=== PATIENT | male | born 1955 | race Caucasian/White ===

== ENCOUNTER 2020-05-26 05:55 | Outpatient (CLI) | payer MEDICARE, OTHER ==
[2020-05-26 14:51] LABS: Hemoglobin 15.3 g/dL (14.0-18.0); Mean Corpuscular Hemoglobin 33.3 pg (27.0-31.0); Mean Platelet Volume 7.2 fL (7.4-10.4); Platelet Count 208 thou/uL (130-400); RBC Distribution Width 11.3 % (11.5-14.5); Red Blood Cell (RBC) Count 4.59 mill/uL (4.70-6.10); White Blood Cell (WBC) Count 9.3 thou/uL (4.8-10.8)
[2020-05-26 14:56] LABS: INR-International Normal Ratio 0.9; PTT 27.7 sec (22.9-36.1); Prothrombin Time 11.9 sec (12.0-14.7)
[2020-05-26 15:03] LABS: Anion Gap 13 mmol/L (10-20); BUN (Urea Nitrogen) 27 mg/dL (8.4-25.7); Calc. Creatinine Clearance 0 mL/min (70-130); Carbon Dioxide 26 mmol/L (23-31); Chloride 100 mmol/L (98-107); Estimated GFR-MDRD 34; Potassium 5.8 mmol/L (3.5-5.1); Sodium 133 mmol/L (136-145)
[2020-05-26 15:04] LABS: Calcium 9.6 mg/dL (7.8-10.44); Glucose 175 mg/dL (80-115)
[2020-05-27 12:16] LABS: SARS-CoV-2 MS2 Positive; SARS-CoV-2 N Gene Negative; SARS-CoV-2 S Gene Negative; SARS-CoV-2 orf1ab Negative
--- NOTE | 2020-05-29 14:26 | EKG ---
Test Reason : Blood Pressure : / mmHG Vent. Rate : 075 BPM Atrial Rate : 075 BPM P-R Int : 206 ms QRS Dur : 104 ms QT Int : 400 ms P-R-T Axes : 064 122 021 degrees QTc Int : 446 ms Normal sinus rhythm Right axis deviation Pulmonary disease pattern Abnormal ECG No previous ECGs available Confirmed by MARY ANNE FALCON (2) on 05/29/2020 2:26:03 PM Referred By: DENA Confirmed By:MARY ANNE FALCON
== END 2020-05-26 05:56 | disposition home or self-care (01) ==
LOC: LABBT 05:55
PROVIDERS: ATTEND Neurological Surgery
DX: Z01.818 Encounter for other preprocedural examination (principal); Z11.59 Encounter for screening for other viral diseases; M48.07 Spinal stenosis, lumbosacral region
CPT/HCPCS: 80048; 85027; 85610; 85730; 93005; U0003; 87635; 93010

== ENCOUNTER 2020-05-26 11:45 | Inpatient (IN) | payer MEDICARE ==
[2020-05-25 14:41] VITALS: BMI 32.3
--- NOTE | 2020-05-30 06:09 | HP ---
PROCEDURE TO BE PERFORMED: Redo L2-S1 laminectomy. HISTORY OF PRESENT ILLNESS: Mr. Orr is a 65-year-old gentleman with lower back and leg pain. His pain is greater on the left than on the right. He continues to have no improvements with lumbar spinal injections and physical therapy. He has a past history of a TLIF [place] [address] Rosas in [place]. States his pain radiates down both legs into his gluteal muscles, groin and the hamstrings. When he walks, his pain becomes worse. He can only walk about 5 feet due to the pain and he must stop immediately and offload. This prevents him from standing long periods of time as well. He gets some relief by bending forward and supporting his weight using a walker or shopping cart. The farther he walks the weaker his legs get, makes him very unstable. Mr. Orr received plans from his nephrologists to get a myelogram due to having a pacemaker. The myelogram noted severe stenosis at L2-L3, L3-L4 and moderate stenosis at L5-S1. He denies any bladder or bowel dysfunction. MEDICAL HISTORY: Heart trouble, chest pain, OH, heart failure, hypertension, diabetes mellitus, kidney disease/failure, CVA. PAST SURGICAL HISTORY: Heart catheterization, back, cardiac bypass, pacemaker defibrillator. HOSPITALIZATION: As above surgeries. FAMILY HISTORY: Father alive, 76 years old. Mother 64. One brother, two sisters, Alzheimer's and OH. SOCIAL HISTORY: with three children. No alcohol use. Smokes six cigarettes a day for the past 41 years. MEDICATIONS: 1. Dronedarone. 2. Ezetimibe. 3. Ventolin. 4. Tylenol #4. 5. Benzonatate. 6. Diazepam. 7. Glipizide. 8. Dexamethasone. REVIEW OF SYSTEMS: CONSTITUTIONAL: Denies fever or chills. EYES, EAR, NOSE, AND THROAT: Denies change of vision or hearing. CARDIAC: Denies chest pain, shortness of breath, or diaphoresis. PULMONARY: Denies shortness of breath, cough, or hemoptysis. : Denies urinary incontinence, trouble with urination, frequency of urination , or bloody urine. SKIN: Denies skin rash, bruising, bleeding, or skin masses. MUSCULOSKELETAL: As per history of present illness. NEUROLOGICAL: As per history of present illness. PSYCHOLOGICAL: Denies anxiety, depression, or behavioral changes. PHYSICAL EXAMINATION: VITAL SIGNS: Weight 220, height 5 feet 9 inches. HEENT: Pupils are equal. Extraocular movements are intact. NECK: Normal, soft and supple. No masses are noted. Range of motion intact and nonpainful. NEUROLOGIC: Awake, alert, and oriented x3. Memory, attention, fund of knowledge are normal. Cranial nerves 2 through 12 are grossly intact. Gait and station: Normal. Has to lean forward. Motor exam: Normal strength in the iliopsoas, quadriceps, hamstrings, anterior tib, EHL, gastrocs and toe flexors. Sensory exam, stocking distribution, sensory loss. IMAGING: Myelogram at L4-L5 instruments in place, still residual stenosis there. Severe stenosis at L2-L3, L3-L4, moderate at L5-S1. PLAN: 1. Laminectomy at L2-S1 with removal of the posterior crossbar instrument. 2. Preop labs, CBC, PT, PTT and COVID-19. 3. Anesthesia clearance. 4. Dr. Merino clearance for May 30 surgery. INFORMED CONSENT: We discussed the indications, risks, benefits, alternatives, and expected results from surgery. The risks discussed included, but were not limited to, bleeding, infection, CSF leak, nerve damage, weakness, incontinence, cauda equina injury, arachnoiditis, paralysis, ventilator dependency, wheelchair dependency, loss of vision, cardiopulmonary complications of anesthesia or . Long-term complications discussed included, but were not limited to spinal instability and future surgery. He understands the risks and is willing to proceed. Job ID: [id number] [facility]
[2020-05-30] MEDS ORDERED: EPINEPHrine 1 MG/ML AMP ONE (06:21)
[2020-05-30] MEDS ORDERED: Thrombin 5000 UNITS/5 ML VIAL ONE (06:21)
[2020-05-30] MEDS ORDERED: Bupivacaine PF 0.5% 30 ML VIAL ONE (06:21)
[2020-05-30] MEDS ORDERED: Fentanyl 250 MCG/5 ML VIAL ONE (06:24)
[2020-05-30] MEDS ORDERED: Midazolam HCl 2 mg/2 ml Vial ONE (06:24)
[2020-05-30] MEDS ORDERED: Phenylephrine 10 MG/ML VIAL ONE ×2 (08:05→08:52)
[2020-05-30] MEDS ORDERED: Milk Of Magnesia 30 ML UDCUP PO PRN (11:39)
[2020-05-30] MEDS ORDERED: traMADol HCl 50 MG TAB PO PRN (11:39)
[2020-05-30] MEDS ORDERED: Scopolamine 1.5 mg/72 hour Patch TD PRN (11:39)
[2020-05-30] MEDS ORDERED: Promethazine 25 MG TAB PO PRN (11:39)
[2020-05-30] MEDS ORDERED: diphenhydrAMINE 25 MG CAP PO PRN (11:39)
[2020-05-30] MEDS ORDERED: Tamsulosin HCl 0.4 MG CAP PO PRN (11:39)
[2020-05-30] MEDS ORDERED: Acetaminophen 325 MG TAB PO PRN (11:39)
[2020-05-30] MEDS ORDERED: Fentanyl 100 MCG/2 ML VIAL ONE ×3 (11:58→12:30)
[2020-05-30] MEDS ORDERED: Morphine 4 MG/ML VIAL ONE (12:30)
--- NOTE | 2020-05-30 12:43 | OP ---
DATE OF PROCEDURE: 05/30/2020 MAINTENANCE PLANNER: Reji Hobbs PA-C PREOPERATIVE INDICATION: Prevent neurological deterioration. PREOPERATIVE DIAGNOSES: Multiple previous lumbar surgeries, repeat lumbar stenosis with severe neurogenic claudication at L2-L3, L3-L4, L5-S1 and foraminal stenosis at L4-L5 (previously fused segment). POSTOPERATIVE DIAGNOSES: Multiple previous lumbar surgeries, repeat lumbar stenosis with severe neurogenic claudication at L2-L3, L3-L4, L5-S1 and foraminal stenosis at L4-L5 (previously fused segment). PROCEDURES PERFORMED: Reopening of lumbar incision, decompressive laminectomy, medial facetectomy, foraminotomy at L2-L3, L3-L4, L4-L5, L5-S1, dissection of scar tissue, removal of L4-L5 crossbar posterior instrumentation. PREOPERATIVE MEDICATION: Ancef 2 g IV. DRAIN NUMBER: Zero. DRAIN TYPE: None. DESCRIPTION OF PROCEDURE: The patient was brought to the operating room. General endotracheal anesthesia was induced. The patient was positioned prone on the operating table with his chest and hips supported by the appropriate attachments of the Arvin frame. A lateral fluoro radiograph confirmed the previous incision would give us the lumbar access we needed with minimal extension superiorly. The lumbar skin was sterilely prepped and draped. We opened with a 10 blade knife and we controlled bleeding with bipolar and monopolar cautery. We used monopolar cautery to dissect through subcutaneous tissues to the thoracodorsal fascia. We incised the fascia in midline and reflected the paraspinal muscles and scar tissue off the spinous process and lamina of L2, L3, L4 (crossbar instrumentation), L5 and the top of S1. A self-retaining retractor was placed and a lateral fluoro radiograph confirmed the levels upon which we were operating. We then removed the spinous process of L2 and L3 and L5 and S1 with Adson rongeur. We brought a hex screw head in the field and removed the titanium crossbar instrumentation at L4-L5. This was taken out in multiple pieces that had been previously assembled by his prior spine surgeons. With this out of the way, we could access the spinal canal at that level as well. We brought a high-speed drill into the field. We thinned the lamina of L2, L3, L5, and S1 and with Kerrison rongeurs, we fashioned a laminectomy down the midline. We widened our laminectomy defect carefully by teasing scar tissue off the undersurface of the lamina and using Kerrison rongeurs, performed medial facetectomies. We performed foraminotomies over the exit points of the nerve roots as well. Most of the scar tissue built up at L4-L5 and here performing medial facetectomies was our method of loosening the scar tissue attachments to the lateral confines of the spinal canal. We performed foraminotomy over the L4 nerve roots there. We freed up the L5 nerve roots as well. This medial facetectomy and foraminotomy procedure was used throughout until we had decompressed the common thecal sac, the lateral recesses in the foramen. We irrigated with bacitracin irrigation. We waxed the bone edges. We passed a Alex ball probe out the foramen with the L2, L3, L4, L5, and S1 nerve roots and there was no compression. We treated the wound with vancomycin powder after copious irrigation. We closed the wound in anatomical layers and we applied a sterile dressing. This was a clean case, no contamination. Job ID: [id number]
[2020-05-30] MEDS ORDERED: PROPOFOL 200 MG/20 ML VIAL ONE (13:02)
[2020-05-30] MEDS ORDERED: PHENYLEPHRINE-NS 100 MCG/ML 10 ML SYRINGE ONE (13:02)
[2020-05-30] MEDS ORDERED: EPHEDRINE 25 MG/5 ML SYRINGE ONE (13:02)
[2020-05-30] MEDS ORDERED: Glycopyrrolate 0.2 MG/ML 5 ML SYRINGE ONE (13:02)
[2020-05-30] MEDS ORDERED: Lidocaine 1% PF 5 ML VIAL ONE (13:02)
[2020-05-30] MEDS ORDERED: Ondansetron PF 4 MG/2 ML Vial ONE (13:02)
[2020-05-30] MEDS ORDERED: Rocuronium Bromide 10 MG/ML (10ML VIAL) ONE (13:02)
[2020-05-30] MEDS ORDERED: CEFAZOLIN 2 GM in Premix Bag 1 BAG IVPB SCH (14:00)
[2020-05-30] MEDS: CEFAZOLIN 2 GM in Premix Bag 1 BAG IVPB SCH ×2 (15:38→23:19)
[2020-05-30] MEDS: Sodium Chloride 0.9% 1,000 ML IV SCH ×3 (15:39→23:29)
[2020-05-30] MEDS ORDERED: Dronedarone HCl 400 MG TAB PO SCH ×2 (17:00→17:15)
[2020-05-30] MEDS: HYDROcodone/Acetaminophen 7.5/325 mg Tablet PO PRN (18:06)
[2020-05-30] MEDS ORDERED: cloNIDine 0.1 MG TAB PO SCH (21:00)
[2020-05-30] MEDS ORDERED: Spironolactone 25 MG TAB PO SCH (21:00)
[2020-05-30] MEDS: Aspirin 81 mg Enteric Coated Tablet PO SCH (21:02)
[2020-05-30] MEDS: Spironolactone 25 MG TAB PO SCH (21:02)
[2020-05-30] MEDS: Morphine 2 MG/ML VIAL SLOW IVP PRN (23:18)
[2020-05-31] MEDS: Cyclobenzaprine 10 MG TAB PO PRN ×2 (02:20→12:11)
[2020-05-31] MEDS: HYDROcodone/Acetaminophen 7.5/325 mg Tablet PO PRN ×3 (02:23→12:11)
[2020-05-31] MEDS: Morphine 2 MG/ML VIAL SLOW IVP PRN (05:55)
[2020-05-31] MEDS ORDERED: glipiZIDE 10 MG TAB PO SCH ×2 (07:30)
--- NOTE | 2020-05-31 08:20 | PRG ---
DATE OF SERVICE: 05/31/2020 I saw Mr. Orr on rounds this morning. His hearing loss makes it difficult for him to communicate. He complains of some significant back pain. He notices improvement in the sensation of his legs and feet. He can move his legs , but if he moves his large muscles around the hip, his back hurts significantly. He is hesitant to do so therefore. I am going to have the acute Pain Management team visit with Mr. Orr to get his pain under control so that he can get the physical therapy he needs. We may try a brace to alleviate some of the discomfort. That might be beneficial for him. Eventually, inpatient rehabilitation is likely. Job ID: [id number] [facility]TD[facility]
[2020-05-31] MEDS ORDERED: Docusate 100 MG CAP PO PRN (08:29)
[2020-05-31] MEDS ORDERED: Fentanyl 100 MCG/2 ML VIAL SLOW IVP PRN (08:30)
[2020-05-31] MEDS ORDERED: Carvedilol 6.25 MG TAB PO SCH (09:00)
[2020-05-31] MEDS: glipiZIDE 5 MG TAB PO SCH ×2 (09:13→15:38)
[2020-05-31] MEDS: Dronedarone HCl 400 MG TAB PO SCH ×2 (09:15→15:37)
[2020-05-31] MEDS: Furosemide 40 MG TAB PO SCH (09:15)
[2020-05-31] MEDS: cloNIDine 0.1 MG TAB PO SCH ×2 (09:15→22:00)
[2020-05-31] MEDS: Potassium Chloride 20 MEQ TAB PO SCH (09:16)
[2020-05-31] MEDS: Amiodarone 200 MG TAB PO SCH (09:16)
[2020-05-31] MEDS: Carvedilol 6.25 MG TAB PO SCH ×2 (09:17→21:59)
[2020-05-31] MEDS: Spironolactone 25 MG TAB PO SCH ×2 (09:17→22:03)
[2020-05-31] MEDS: Sodium Chloride 0.9% 1,000 ML IV SCH ×2 (10:41→19:20)
[2020-05-31] MEDS ORDERED: HumaLOG 300 UNITS/3 ML VIAL SC PRN ×2 (11:15)
[2020-05-31] MEDS ORDERED: Dextrose 50% Abboject 50 ML SYRINGE SLOW IVP PRN (11:15)
[2020-05-31] MEDS ORDERED: Dextrose 5% in Water 1,000 ML IV PRN (11:15)
--- NOTE | 2020-05-31 14:08 | PDOC.HOSPP ---
- Subjective Encounter Date: 05/31/20 Encounter Time: 10:30 Subjective: pt seen and examined for medical management, has some complaints of pain but no others - Objective Vital Signs & Weight: Vital Signs (12 hours) Temp Pulse Resp BP BP Pulse Ox 05/31/20 11:13 99 F 99 16 106/72 96 05/31/20 09:17 130/82 05/31/20 09:15 130/82 05/31/20 07:34 99.5 F 112 H 18 130/82 95 05/31/20 04:15 98.9 F 102 H 16 136/77 92 L Weight Weight 219 lb I&O: 05/30/20 05/31/20 06/01/20 06:59 06:59 06:59 Intake Total 3660 Output Total 4200 Balance -540 EKG Reviewed by me: Yes (SR 75) Hospitalist ROS - Review of Systems Constitutional: reports: other (pain in back) Eyes: denies: pain, vision change, conjunctivae inflammation, eyelid inflammation, redness, other ENT: denies: ear pain, ear discharge, nose pain, nose discharge, nose congestion , mouth pain, mouth swelling, throat pain, throat swelling, other Respiratory: denies: cough, dry, shortness of breath, hemoptysis, SOB with excertion, pleuritic pain, sputum, wheezing, other Cardiovascular: denies: chest pain, palpitations, orthopnea, paroxysmal noc. dyspnea, edema, light headedness, other Gastrointestinal: denies: nausea, vomiting, abdominal pain, diarrhea, constipation, melena, hematochezia, other Genitourinary: denies: dysuria, frequency, incontinence, hematuria, retention, other Musculoskeletal: denies: neck pain, shoulder pain, arm pain, back pain, hand pain, leg pain, foot pain, other Skin: denies: rash, lesions, piper, bruising, other Neurological: denies: weakness, numbness, incoordination, change in speech, confusion, seizures, other All other systems reviewed; all pertinent +/- noted in HPI/Subj - Medication Medications: Active Medications Generic Name Dose Route Start Last Admin Trade Name Freq PRN Reason Stop Dose Admin Hydrocodone Bitart/Acetaminophen 1 tab 05/30/20 11:39 05/31/20 12:11 [place] 7.5/325 PO 1 tab Q4H PRN Administration Mild Pain (1-3) Amiodarone HCl 200 mg 05/31/20 09:00 05/31/20 09:16 Cordarone PO Not Given DAILY [facility] Aspirin 81 mg 05/30/20 21:00 05/30/20 21:02 Ecotrin PO 81 mg QPM ANDRE Administration Carvedilol 12.5 mg 05/31/20 09:00 05/31/20 09:17 Coreg PO 12.5 mg QAM ANDRE Administration Clonidine 0.1 mg 05/31/20 09:00 05/31/20 09:15 Catapres PO 0.1 mg BID ANDRE Administration Cyclobenzaprine HCl 10 mg 05/30/20 11:53 05/31/20 12:11 Flexeril PO 10 mg TIDPRN PRN Administration Muscle Spasm Dronedarone 200 mg 05/31/20 08:00 05/31/20 09:15 Multaq PO 200 mg BID-WM ANDRE Administration Fentanyl 25 mcg 05/31/20 08:30 05/31/20 09:21 Sublimaze SLOW IVP 25 mcg Q2H PRN Administration Mild Pain (1-3) Furosemide 40 mg 05/31/20 09:00 05/31/20 09:15 Lasix PO Not Given DAILY ANDRE Glipizide 5 mg 05/31/20 07:30 05/31/20 09:13 Glucotrol PO 5 mg BID-AC ANDRE Administration Sodium Chloride 1,000 mls @ 90 mls/hr 05/30/20 11:45 05/31/20 10:41 Normal Saline 0.9% IV Not Given .Q11H7M ANDRE Isosorbide Mononitrate 60 mg 05/31/20 09:00 05/31/20 09:16 Imdur PO 60 mg DAILY ANDRE Administration Morphine Sulfate 2 mg 05/30/20 11:39 05/31/20 05:55 Morphine Sulfate SLOW IVP 2 mg Q1H PRN Administration Moderate Breakthrough Pain 4-6 Potassium Chloride 20 meq 05/31/20 09:00 05/31/20 09:16 K-Dur PO Not Given DAILY ANDRE Scopolamine 1.5 mg 05/30/20 11:39 05/30/20 15:36 Transderm Scop TD 1.5 mg Q3D PRN Administration Dizziness Spironolactone 12.5 mg 05/30/20 21:00 05/31/20 09:17 Aldactone PO 12.5 mg BID ANDRE Administration Tramadol HCl 50 mg 05/30/20 11:39 05/31/20 04:27 Ultram PO 50 mg Q6H PRN Administration Mild Pain (1-3) - Exam General Appearance: NAD, awake alert Eye: PERRL, anicteric sclera ENT: normocephalic atraumatic, moist mucosa Neck: supple, no JVD, no lymphadenopathy Heart: RRR, no murmur, no gallops, no rubs Respiratory: CTAB, no wheezes, no rales, no ronchi, normal chest expansion Gastrointestinal: soft, non-tender, non-distended, normal bowel sounds Extremities: no cyanosis, no clubbing, no edema Musculoskeletal: generalized weakness Psychiatric: normal affect, normal behavior Hosp A/P (1) HTN (hypertension) Code(s): I10 - ESSENTIAL (PRIMARY) HYPERTENSION Status: Chronic (2) Diabetes mellitus, type 2 Status: Chronic (3) Hyperlipidemia Code(s): E78.5 - HYPERLIPIDEMIA, UNSPECIFIED Status: Acute - Plan Surgery team has restarted patient's home medications. Will continue to monitor VS for history of HTN and will order accucheks with SSI for history of DM 2. Vital signs are stable currently, patient adamant that we are not to change any of his heart of blood pressure medications and there is no need at this time for that. He is still having lots of pain and pain management will be coming to see him today and he is also being fitted for a brace. Due to void at this time, catheter was removed this morning, will continue to follow to ensure he fully empties his bladder and is comfortable without having paez in place. Patient was seen and examined today for medical management denies any new complaints of chest pain or shortness of breath fever chills nausea vomiting however still complain of some pain physical examination awake alert hard of hearing's S1-S2 no murmur abdomen soft nontender some generalized weakness Lower extremities labs and imaging reviewed agree with above assessment and plan continue with rest of home medication and follow further pain management recommendations
[2020-05-31] MEDS ORDERED: HYDROmorphone 10 mg/100 ml CADD IV PRN (14:55)
[2020-05-31] MEDS: Acetaminophen 500 MG TAB PO SCH ×2 (15:38→22:02)
[2020-05-31] MEDS: Aspirin 81 mg Enteric Coated Tablet PO SCH (22:03)
[2020-06-01] MEDS: Mag-Al 1200 mg/1200 mg/30 ML UDCUP PO PRN ×2 (01:39→14:51)
[2020-06-01] MEDS: Acetaminophen 500 MG TAB PO SCH ×2 (02:59→10:41)
[2020-06-01 04:10] LABS: Bacteria/HPF None Seen HPF (None Seen); Bilirubin Negative (Negative); Blood, Urine Trace (Negative); Clarity Clear (Clear); Glucose, Urine (Dipstick) Greater than 1000 mg/dL (Negative); Ketone, Urine Negative (Negative); Leukocyte Negative Leu/uL (Negative); Nitrite Negative (Negative); Protein, Urine (Dipstick) Negative (Neg-Trace); RBC/HPF 0-3 HPF (0-3); Specific Gravity, Urine 1.013 (1.002-1.036); Squamous Epithelial None Seen HPF (0-3); Urobilinogen Normal mg/dL (Less than 2)
[2020-06-01 04:12] LABS: Urine Culture Reflex Yes Yes
[2020-06-01] MEDS: glipiZIDE 5 MG TAB PO SCH ×2 (06:36→17:31)
[2020-06-01] MEDS ORDERED: Bisacodyl 10 MG SUPP PR PRN (07:58)
[2020-06-01] MEDS ORDERED: Fleet Enema 133 ML BOT PR SCH (08:00)
--- NOTE | 2020-06-01 08:15 | PRG ---
DATE OF SERVICE: 06/01/2020 I saw Mr. Orr in his hospital room this morning. He complains that when he got up out of bed and ambulated, his back was sore. His legs feel stronger and the sensation in his leg seems to have improved since his operation. Maximum temperature I see recorded since surgery is 99.6. Other vitals have been stable. The neurological function in lower extremities is stable as well. We will mobilize Mr. Orr. He is a bit distended, so we used some suppositories to help stimulate bowel motility. I think he is going to need inpatient rehabilitation. Job ID: [id number] [facility]TDD
[2020-06-01] MEDS: Dronedarone HCl 400 MG TAB PO SCH ×2 (10:37→17:31)
[2020-06-01] MEDS: cloNIDine 0.1 MG TAB PO SCH ×2 (10:37→20:54)
[2020-06-01] MEDS: Amiodarone 200 MG TAB PO SCH (10:38)
[2020-06-01] MEDS: Carvedilol 6.25 MG TAB PO SCH ×2 (10:39→20:54)
[2020-06-01] MEDS: Spironolactone 25 MG TAB PO SCH ×2 (10:40→20:54)
[2020-06-01] MEDS: Furosemide 40 MG TAB PO SCH (10:41)
[2020-06-01] MEDS: Potassium Chloride 20 MEQ TAB PO SCH (10:41)
[2020-06-01] MEDS: Sodium Chloride 0.9% 1,000 ML IV SCH ×2 (10:42→19:10)
[2020-06-01] MEDS ORDERED: HYDROcodone/Acetaminophen 10/325 mg Tablet PO PRN (11:24)
[2020-06-01] MEDS ORDERED: traMADol HCl 50 MG TAB PO PRN (11:24)
--- NOTE | 2020-06-01 12:28 | PDOC.HOSPP ---
- Subjective Encounter Date: 06/01/20 Subjective: pt seen examined still complaing f pain in his back and LE but feeling better today no cp, sob , n/v no overnight events - Objective Vital Signs & Weight: Vital Signs (12 hours) Temp Pulse Resp BP BP Pulse Ox 06/01/20 11:15 98.5 F 88 16 123/74 97 06/01/20 10:37 109/70 06/01/20 07:16 98.5 F 91 18 124/82 95 06/01/20 03:48 98.5 F 85 18 154/82 H 95 Weight Weight 219 lb I&O: 05/31/20 06/01/20 06/02/20 06:59 06:59 06:59 Intake Total 3660 960 Output Total 4200 1150 Balance -540 -190 Additional Labs: Accuchecks 06/01/20 06/01/20 05/31/20 11:27 05:36 20:48 POC Glucose 341 H 271 H 209 H 05/31/20 16:30 POC Glucose 279 H Hospitalist ROS - Medication Medications: Active Medications Generic Name Dose Route Start Last Admin Trade Name Freq PRN Reason Stop Dose Admin Al Hydroxide/Mg Hydroxide 30 ml 05/30/20 11:39 06/01/20 01:39 Maalox PO 30 ml Q4H PRN Administration Indigestion Amiodarone HCl 200 mg 05/31/20 09:00 06/01/20 10:38 Cordarone PO 200 mg DAILY ANDRE Administration Aspirin 81 mg 05/30/20 21:00 05/31/20 22:03 Ecotrin PO 81 mg QPM ANDRE Administration Carvedilol 18.75 mg 05/31/20 21:00 05/31/20 21:59 Coreg PO Not Given QPM ANDRE Carvedilol 12.5 mg 05/31/20 09:00 06/01/20 10:39 Coreg PO 12.5 mg QAM ANDRE Administration Clonidine 0.1 mg 05/31/20 09:00 06/01/20 10:37 Catapres PO 0.1 mg BID ANDRE Administration Cyclobenzaprine HCl 10 mg 05/30/20 11:53 05/31/20 12:11 Flexeril PO 10 mg TIDPRN PRN Administration Muscle Spasm Dronedarone 200 mg 05/31/20 08:00 06/01/20 10:37 Multaq PO 200 mg BID-WM ANDRE Administration Fentanyl 25 mcg 05/31/20 08:30 05/31/20 09:21 Sublimaze SLOW IVP 25 mcg Q2H PRN Administration Mild Pain (1-3) Furosemide 40 mg 05/31/20 09:00 06/01/20 10:41 Lasix PO 40 mg DAILY ANDRE Administration Glipizide 5 mg 05/31/20 07:30 06/01/20 06:36 Glucotrol PO 5 mg BID-AC ANDRE Administration Sodium Chloride 1,000 mls @ 90 mls/hr 05/30/20 11:45 06/01/20 10:42 Normal Saline 0.9% IV 1,000 mls .Q11H7M ANDRE Administration Isosorbide Mononitrate 60 mg 05/31/20 09:00 06/01/20 10:40 Imdur PO 60 mg DAILY ANDRE Administration Potassium Chloride 20 meq 05/31/20 09:00 06/01/20 10:41 K-Dur PO 20 meq DAILY ANDRE Administration Scopolamine 1.5 mg 05/30/20 11:39 05/30/20 15:36 Transderm Scop TD 1.5 mg Q3D PRN Administration Dizziness Spironolactone 12.5 mg 05/30/20 21:00 06/01/20 10:40 Aldactone PO 12.5 mg BID ANDRE Administration Hosp A/P (1) HTN (hypertension) Code(s): I10 - ESSENTIAL (PRIMARY) HYPERTENSION Status: Chronic (2) Diabetes mellitus, type 2 Status: Chronic - Plan Surgery team has restarted patient's home medications. Will continue to monitor VS for history of HTN and accucheks with SSI for history of DM 2. Vital signs are stable currently, patient adamant that we are not to change any of his heart of blood pressure medications and there is no need at this time for that. c/w pain management encourage mobility laxitives prn will recheck labs in am and cont to follow full code
[2020-06-01 13:23] LABS: #Eosinphils 0.1 thou/uL (0.0-0.7); #Lymphocytes 1.5 thou/uL (1.20-3.40); #Neutrophils 7.7 thou/uL (1.40-6.50); %Basophils 0.1 % (0.0-1.0); %Eosinophils 0.7 % (0.0-10.0); %Lymphocytes 14.2 % (21.0-51.0); %Neutrophils 74.9 % (42.0-75.0); Hemoglobin 11.7 g/dL (14.0-18.0); Mean Corpuscular HGB CONC 33.3 g/dL (32.0-36.0); Mean Corpuscular Hemoglobin 32.5 pg (27.0-31.0); Mean Corpuscular Volume 97.6 fL (78.0-98.0); Mean Platelet Volume 6.9 fL (7.4-10.4); Platelet Count 162 thou/uL (130-400); RBC Distribution Width 11.2 % (11.5-14.5); White Blood Cell (WBC) Count 10.3 thou/uL (4.8-10.8)
[2020-06-01 13:53] LABS: Anion Gap 10 mmol/L (10-20); BUN (Urea Nitrogen) 20 mg/dL (8.4-25.7); Calc. Creatinine Clearance 58 mL/min (70-130); Calcium 8.4 mg/dL (7.8-10.44); Carbon Dioxide 30 mmol/L (23-31); Chloride 98 mmol/L (98-107); Estimated GFR-MDRD 38; Glucose 224 mg/dL (80-115); Potassium 4.5 mmol/L (3.5-5.1); Sodium 133 mmol/L (136-145)
[2020-06-01] MEDS: HYDROcodone/Acetaminophen 10/325 mg Tablet PO PRN (14:48)
[2020-06-01] MEDS: Aspirin 81 mg Enteric Coated Tablet PO SCH (20:46)
[2020-06-02] MEDS: glipiZIDE 5 MG TAB PO SCH (06:33)
[2020-06-02] MEDS: Sodium Chloride 0.9% 1,000 ML IV SCH (06:34)
--- NOTE | 2020-06-02 07:37 | PRG ---
DATE OF SERVICE: 06/02/2020 I saw Mr. Orr in his room this morning. He is already sitting up in his chair. He is watching television. He tells me he walked around the entire floor yesterday both nurses stations at either end and back to his room. That is a significant improvement. His legs feel stronger and more sensate than they did before surgery. The back remains sore. Mr. Orr wants to go home rather than to rehab. If he continues to improve at the rate, which he did overnight yesterday, then I think that is a realistic goal. We are going to remove the Khan catheter and see if he can empty his bladder on his own. If he ambulates significantly far distances and can empty his bladder, then he can be discharged home today. Job ID: [id number]
[2020-06-02] MEDS: Carvedilol 6.25 MG TAB PO SCH (07:58)
[2020-06-02] MEDS: cloNIDine 0.1 MG TAB PO SCH (07:59)
[2020-06-02] MEDS: Spironolactone 25 MG TAB PO SCH (07:59)
[2020-06-02] MEDS: Dronedarone HCl 400 MG TAB PO SCH (07:59)
[2020-06-02] MEDS: Potassium Chloride 20 MEQ TAB PO SCH (08:00)
[2020-06-02] MEDS: HYDROcodone/Acetaminophen 10/325 mg Tablet PO PRN ×2 (08:00→12:04)
[2020-06-02] MEDS: Amiodarone 200 MG TAB PO SCH (08:06)
[2020-06-02] MEDS: Furosemide 40 MG TAB PO SCH (08:06)
--- NOTE | 2020-06-02 11:28 | PDOC.HOSPP ---
- Subjective Encounter Date: 06/02/20 Subjective: Patient seen and examined bedside this morning resting in bed no acute distress reports significant improvement in his pain denying any chest pain shortness of breath fever chills nausea vomiting patient with good improvement possible discharge later on today - Objective Vital Signs & Weight: Vital Signs (12 hours) Temp Pulse Resp BP BP Pulse Ox 06/02/20 07:59 114/67 06/02/20 07:58 114/67 06/02/20 07:20 98.7 F 82 16 114/67 98 06/02/20 04:00 98.7 F 87 16 111/69 96 06/02/20 00:15 99.4 F 78 17 115/74 98 Weight Weight 219 lb I&O: 06/01/20 06/02/20 06/03/20 06:59 06:59 06:59 Intake Total 960 1257 Output Total 1150 277 175 Balance -190 -1518 -175 Result Diagrams: 06/01/20 12:45 06/01/20 12:45 Additional Labs: Accuchecks 06/02/20 06/01/20 06/01/20 06:11 20:41 16:28 POC Glucose 204 H 214 H 344 H 06/01/20 11:27 POC Glucose 341 H Hospitalist ROS - Medication Medications: Active Medications Generic Name Dose Route Start Last Admin Trade Name Freq PRN Reason Stop Dose Admin Hydrocodone Bitart/Acetaminophen 2 tab 06/01/20 11:24 06/02/20 08:00 [place] 10/325 PO 2 tab Q4H PRN Administration Pain 5-8 Al Hydroxide/Mg Hydroxide 30 ml 05/30/20 11:39 06/01/20 14:51 Maalox PO 30 ml Q4H PRN Administration Indigestion Amiodarone HCl 200 mg 05/31/20 09:00 06/02/20 08:06 Cordarone PO Not Given DAILY ANDRE Aspirin 81 mg 05/30/20 21:00 06/01/20 20:46 Ecotrin PO 81 mg QPM ANDRE Administration Carvedilol 18.75 mg 05/31/20 21:00 06/01/20 20:54 Coreg PO Not Given QPM ANDRE Carvedilol 12.5 mg 05/31/20 09:00 06/02/20 07:58 Coreg PO 12.5 mg QAM ANDRE Administration Clonidine 0.1 mg 05/31/20 09:00 06/02/20 07:59 Catapres PO 0.1 mg BID ANDRE Administration Cyclobenzaprine HCl 10 mg 05/30/20 11:53 05/31/20 12:11 Flexeril PO 10 mg TIDPRN PRN Administration Muscle Spasm Dronedarone 200 mg 05/31/20 08:00 06/02/20 07:59 Multaq PO 200 mg BID-WM ANDRE Administration Fentanyl 25 mcg 05/31/20 08:30 05/31/20 09:21 Sublimaze SLOW IVP 25 mcg Q2H PRN Administration Mild Pain (1-3) Furosemide 40 mg 05/31/20 09:00 06/02/20 08:06 Lasix PO Not Given DAILY ANDRE Glipizide 5 mg 05/31/20 07:30 06/02/20 06:33 Glucotrol PO 5 mg BID-AC ANDRE Administration Sodium Chloride 1,000 mls @ 90 mls/hr 05/30/20 11:45 06/02/20 06:34 Normal Saline 0.9% IV Not Given .Q11H7M ANDRE Insulin Human Lispro 0 units 05/31/20 11:15 06/01/20 17:32 Humalog SC 5 unit .MILD SLIDING SCALE PRN Administration Mild Correctional Scale Insulin Human Lispro 0 units 05/31/20 11:15 06/01/20 20:46 Humalog SC 2 unit .BEDTIME SLIDING SC PRN Administration Bedtime Correctional Scale Isosorbide Mononitrate 60 mg 05/31/20 09:00 06/02/20 07:59 Imdur PO 60 mg DAILY ANDRE Administration Potassium Chloride 20 meq 05/31/20 09:00 06/02/20 08:00 K-Dur PO 20 meq DAILY ANDRE Administration Scopolamine 1.5 mg 05/30/20 11:39 05/30/20 15:36 Transderm Scop TD 1.5 mg Q3D PRN Administration Dizziness Spironolactone 12.5 mg 05/30/20 21:00 06/02/20 07:59 Aldactone PO 12.5 mg BID ANDRE Administration - Exam General Appearance: NAD, awake alert ENT: normocephalic atraumatic Neck: supple Heart: RRR Respiratory: CTAB Gastrointestinal: soft Hosp A/P (1) HTN (hypertension) Code(s): I10 - ESSENTIAL (PRIMARY) HYPERTENSION Status: Chronic (2) Diabetes mellitus, type 2 Status: Chronic - Plan Patient reports significant improvement symptoms today pain is under control possible discharge later on today versus tomorrow if he continues to improve rest of his medical problems stable continue with the rest of his home medications labs from this morning reviewed he is medically optimized for discharge once cleared Khan catheter removed patient was able to void c/w pain management encourage mobility laxitives prn We will continue to follow during hospital stay full code
[2020-06-02 16:02] VITALS: BP 115/70; TEMP 99.1
== END 2020-06-02 16:03 | disposition home health service (06) | DRG 520 ==
LOC: EDSTATUS 11:45 → SURG A 05-30 05:48
PROVIDERS: ADMIT Neurological Surgery; ATTEND Neurological Surgery
PROC: 00NY0ZZ Release Lumbar Spinal Cord, Open Approach (ICD-10-PCS; principal; 2020-05-30)
PROC: 01NB0ZZ Release Lumbar Nerve, Open Approach (ICD-10-PCS; 2020-05-30)
PROC: 01NR0ZZ Release Sacral Nerve, Open Approach (ICD-10-PCS; 2020-05-30)
PROC: 0QP004Z Removal of Internal Fixation Device from Lumbar Vertebra, Open Approach (ICD-10-PCS; 2020-05-30)
DX: M48.062 Spinal stenosis, lumbar region with neurogenic claudication (principal); M48.07 Spinal stenosis, lumbosacral region; I10 Essential (primary) hypertension; E11.9 Type 2 diabetes mellitus without complications; F17.210 Nicotine dependence, cigarettes, uncomplicated; E78.5 Hyperlipidemia, unspecified; I25.2 Old myocardial infarction; Z86.73 Personal history of transient ischemic attack (TIA), and cerebral infarction without residual deficits; Z95.1 Presence of aortocoronary bypass graft; Z95.810 Presence of automatic (implantable) cardiac defibrillator
CPT/HCPCS: 36415; 36416; 76000; 80048; 81001; 83036; 83735; 85025; 87086; J0171; J0690; J2001; J2250; J2270; J2370; J2405; J2704; J3010; J3370; J3490; S0020

== ENCOUNTER 2021-07-14 04:20 | Inpatient (IN) | payer MEDICARE ==
[2021-07-14 05:52] VITALS: BMI 30.2
[2021-07-14] MEDS ORDERED: Dextrose 5% in Water 1,000 ML IV PRN (07:51)
[2021-07-14] MEDS ORDERED: Dextrose 50% Abboject 50 ML SYRINGE SLOW IVP PRN (07:51)
[2021-07-14] MEDS ORDERED: HumaLOG 300 UNITS/3 ML VIAL SC PRN (07:51)
[2021-07-14] MEDS ORDERED: Ondansetron ODT 4 MG TAB PO PRN (08:28)
[2021-07-14] MEDS ORDERED: Guaifenesin DM 100-10/5 ML UDCUP PO PRN (08:28)
[2021-07-14] MEDS ORDERED: Ondansetron PF 4 MG/2 ML Vial IVP PRN (08:28)
[2021-07-14] MEDS ORDERED: Acetaminophen 325 MG TAB PO PRN (08:28)
[2021-07-14] MEDS ORDERED: Ivermectin 3 MG TAB PO SCH (08:45)
[2021-07-14] MEDS ORDERED: Pantoprazole 40 MG VIAL IVP SCH (09:00)
[2021-07-14] MEDS ORDERED: Sodium Chloride 0.9% (PF) 10 ML VIAL FS PRN (09:00)
[2021-07-14] MEDS: Dronedarone HCl 400 MG TAB PO SCH ×2 (09:22→17:44)
[2021-07-14] MEDS: Colchicine 0.6 MG TAB PO SCH ×2 (09:22→21:11)
[2021-07-14] MEDS: Carvedilol 6.25 MG TAB PO SCH ×2 (09:24→21:11)
[2021-07-14] MEDS: Cholecalciferol 1,000 UNITS (25 MCG) TAB PO SCH (09:25)
[2021-07-14] MEDS: Cyclobenzaprine 10 MG TAB PO SCH ×3 (09:25→21:10)
[2021-07-14] MEDS: Methocarbamol 500 MG TAB PO SCH ×3 (09:25→21:10)
[2021-07-14] MEDS: Spironolactone 25 MG TAB PO SCH ×2 (09:26→21:12)
[2021-07-14] MEDS: Zinc Sulfate 220 MG CAP PO SCH (09:26)
[2021-07-14] MEDS: Amlodipine 5 MG TAB PO SCH (09:26)
[2021-07-14] MEDS: Aspirin 81 mg Enteric Coated Tablet PO SCH (09:26)
[2021-07-14] MEDS: Ascorbic Acid 500 mg Chewable Tablet PO SCH (09:27)
[2021-07-14] MEDS: Enoxaparin Sodium 40 MG/0.4 ML SYRINGE SC SCH ×2 (09:27→21:16)
[2021-07-14] MEDS: Pantoprazole 40 MG VIAL IVP SCH (09:27)
[2021-07-14] MEDS: cloNIDine 0.1 MG TAB PO SCH ×2 (09:27→21:12)
[2021-07-14] MEDS: Dexamethasone 4 mg/ml Vial SLOW IVP SCH ×2 (09:28→21:14)
[2021-07-14] MEDS: Ivermectin 3 MG TAB PO SCH (09:29)
[2021-07-14] MEDS ORDERED: Iopamidol-370 76% 500 ML 1 ML ONE (10:48)
[2021-07-14 10:51] LABS: Troponin I Less than 0.010 ng/mL (< 0.028)
[2021-07-14] MEDS: HumaLOG 300 UNITS/3 ML VIAL SC PRN ×3 (13:08→21:41)
[2021-07-14] MEDS: Mometasone 200 MCG/Formoterol 5 MCG 120 PUFF INHALER INH SCH (17:45)
[2021-07-14 19:50] LABS: SARS-CoV-2 NAA Rapid Test DETECTED (NotDetected)
[2021-07-14] MEDS ORDERED: Non-Formulary Item 1 EACH (Carvedilol [Coreg] 12.5 MG Tab) PO SCH (21:00)
[2021-07-14] MEDS: Melatonin 3 MG TAB PO SCH (21:10)
[2021-07-15] MEDS: HumaLOG 300 UNITS/3 ML VIAL SC PRN ×4 (05:13→21:06)
[2021-07-15] MEDS: Mometasone 200 MCG/Formoterol 5 MCG 120 PUFF INHALER INH SCH ×2 (05:37→18:24)
[2021-07-15 06:00] LABS: #Lymphocytes 0.5 thou/uL (1.20-3.40); #Monocytes 0.4 thou/uL (0.11-0.59); #Neutrophils 8.8 thou/uL (1.40-6.50); %Basophils 0.1 % (0.0-1.0); %Eosinophils 0.1 % (0.0-10.0); %Lymphocytes 5.3 % (21.0-51.0); %Monocytes 3.9 % (0.0-10.0); %Neutrophils 90.6 % (42.0-75.0); Hemoglobin 12.9 g/dL (14.0-18.0); Mean Corpuscular HGB CONC 34.7 g/dL (32.0-36.0); Mean Corpuscular Hemoglobin 33.5 pg (27.0-31.0); Mean Corpuscular Volume 96.4 fL (78.0-98.0); Mean Platelet Volume 7.3 fL (7.4-10.4); Platelet Count 176 thou/uL (130-400); RBC Distribution Width 11.5 % (11.5-14.5); Red Blood Cell (RBC) Count 3.87 mill/uL (4.70-6.10); White Blood Cell (WBC) Count 9.7 thou/uL (4.8-10.8)
[2021-07-15 06:06] LABS: Hemoglobin A1c 7.6 % (4.0-6.0)
[2021-07-15 06:19] LABS: Anion Gap 15 mmol/L (10-20); BUN (Urea Nitrogen) 31 mg/dL (8.4-25.7); Calc. Creatinine Clearance 62 mL/min (70-130); Calcium 8.4 mg/dL (7.8-10.44); Carbon Dioxide 18 mmol/L (23-31); Chloride 102 mmol/L (98-107); Glucose 330 mg/dL (80-115); Sodium 130 mmol/L (136-145)
[2021-07-15] MEDS: Cholecalciferol 1,000 UNITS (25 MCG) TAB PO SCH (09:32)
[2021-07-15] MEDS: cloNIDine 0.1 MG TAB PO SCH ×2 (09:33→20:56)
[2021-07-15] MEDS: Colchicine 0.6 MG TAB PO SCH ×2 (09:33→20:57)
[2021-07-15] MEDS: Zinc Sulfate 220 MG CAP PO SCH (09:33)
[2021-07-15] MEDS: Ascorbic Acid 500 mg Chewable Tablet PO SCH (09:33)
[2021-07-15] MEDS: Aspirin 81 mg Enteric Coated Tablet PO SCH (09:34)
[2021-07-15] MEDS: Cyclobenzaprine 10 MG TAB PO SCH ×3 (09:35→20:56)
[2021-07-15] MEDS: Carvedilol 6.25 MG TAB PO SCH ×2 (09:35→20:58)
[2021-07-15] MEDS: Amlodipine 5 MG TAB PO SCH (09:36)
[2021-07-15] MEDS: Spironolactone 25 MG TAB PO SCH ×2 (09:37→20:57)
[2021-07-15] MEDS: Enoxaparin Sodium 40 MG/0.4 ML SYRINGE SC SCH ×2 (09:38→20:59)
[2021-07-15] MEDS: Pantoprazole 40 MG VIAL IVP SCH (09:39)
[2021-07-15] MEDS: Dexamethasone 4 mg/ml Vial SLOW IVP SCH ×2 (09:39→20:56)
[2021-07-15] MEDS: Dronedarone HCl 400 MG TAB PO SCH ×2 (09:42→17:45)
[2021-07-15] MEDS: Ivermectin 3 MG TAB PO SCH (09:43)
[2021-07-15] MEDS: Methocarbamol 500 MG TAB PO SCH ×3 (09:44→22:55)
[2021-07-15] MEDS ORDERED: Albuterol Sulfate 2.5 mg/3 ml Neb NEB SCH (13:00)
[2021-07-15] MEDS: Albuterol 200 PUFF (6.7GM INHALER) INH SCH ×2 (13:50→20:59)
[2021-07-15] MEDS ORDERED: NPH, Human Insulin Isophane 300 UNIT/3 ML VIAL SC SCH (21:00)
[2021-07-15] MEDS: Melatonin 3 MG TAB PO SCH (22:55)
[2021-07-16] MEDS: Albuterol 200 PUFF (6.7GM INHALER) INH SCH ×4 (01:12→18:15)
[2021-07-16 06:27] LABS: #Lymphocytes 0.7 thou/uL (1.20-3.40); #Monocytes 0.6 thou/uL (0.11-0.59); %Basophils 0.2 % (0.0-1.0); %Lymphocytes 5.1 % (21.0-51.0); %Monocytes 4.4 % (0.0-10.0); %Neutrophils 90.4 % (42.0-75.0); Hemoglobin 13.4 g/dL (14.0-18.0); Mean Corpuscular HGB CONC 32.3 g/dL (32.0-36.0); Mean Corpuscular Hemoglobin 31.2 pg (27.0-31.0); Mean Corpuscular Volume 96.5 fL (78.0-98.0); Mean Platelet Volume 7.3 fL (7.4-10.4); Platelet Count 238 thou/uL (130-400); RBC Distribution Width 11.5 % (11.5-14.5); Red Blood Cell (RBC) Count 4.29 mill/uL (4.70-6.10); White Blood Cell (WBC) Count 14.4 thou/uL (4.8-10.8)
[2021-07-16] MEDS: Mometasone 200 MCG/Formoterol 5 MCG 120 PUFF INHALER INH SCH ×2 (06:38→17:37)
[2021-07-16] MEDS: HumaLOG 300 UNITS/3 ML VIAL SC PRN ×3 (06:40→16:29)
[2021-07-16 06:53] LABS: Anion Gap 17 mmol/L (10-20); BUN (Urea Nitrogen) 38 mg/dL (8.4-25.7); CRP (Inflammatory) 5.59 mg/dL (= or < 0.5); Calc. Creatinine Clearance 67 mL/min (70-130); Calcium 8.2 mg/dL (7.8-10.44); Carbon Dioxide 18 mmol/L (23-31); Chloride 103 mmol/L (98-107); Glucose 292 mg/dL (80-115); Potassium 4.9 mmol/L (3.5-5.1); Sodium 133 mmol/L (136-145)
[2021-07-16] MEDS: Ivermectin 3 MG TAB PO SCH (08:46)
[2021-07-16] MEDS: Enoxaparin Sodium 40 MG/0.4 ML SYRINGE SC SCH ×2 (08:46→21:45)
[2021-07-16] MEDS: Methocarbamol 500 MG TAB PO SCH (08:46)
[2021-07-16] MEDS: cloNIDine 0.1 MG TAB PO SCH ×2 (08:46→21:46)
[2021-07-16] MEDS: Amlodipine 5 MG TAB PO SCH ×2 (08:47→21:45)
[2021-07-16] MEDS: Cyclobenzaprine 10 MG TAB PO SCH (08:47)
[2021-07-16] MEDS: Spironolactone 25 MG TAB PO SCH ×2 (08:48→21:48)
[2021-07-16] MEDS: Cholecalciferol 1,000 UNITS (25 MCG) TAB PO SCH (08:48)
[2021-07-16] MEDS: Zinc Sulfate 220 MG CAP PO SCH (08:48)
[2021-07-16] MEDS: Aspirin 81 mg Enteric Coated Tablet PO SCH ×2 (08:48→21:45)
[2021-07-16] MEDS: Ascorbic Acid 500 mg Chewable Tablet PO SCH (08:49)
[2021-07-16] MEDS: Dronedarone HCl 400 MG TAB PO SCH ×2 (08:49→16:30)
[2021-07-16] MEDS: Colchicine 0.6 MG TAB PO SCH ×2 (08:49→21:48)
[2021-07-16] MEDS: NPH, Human Insulin Isophane 300 UNIT/3 ML VIAL SC SCH ×2 (08:50→21:48)
[2021-07-16] MEDS: Carvedilol 6.25 MG TAB PO SCH ×2 (08:50→21:46)
[2021-07-16] MEDS: Dexamethasone 4 mg/ml Vial SLOW IVP SCH ×2 (08:50→23:45)
[2021-07-16] MEDS ORDERED: Cyclobenzaprine 10 MG TAB PO PRN (09:10)
[2021-07-16] MEDS ORDERED: Methocarbamol 500 MG TAB PO PRN (09:10)
[2021-07-16] MEDS: guaiFENesin ER 600 MG TAB PO SCH (21:45)
[2021-07-16] MEDS: Melatonin 3 MG TAB PO SCH (21:48)
[2021-07-17] MEDS: Albuterol 200 PUFF (6.7GM INHALER) INH SCH ×4 (01:48→18:46)
[2021-07-17 06:20] LABS: #Lymphocytes 0.7 thou/uL (1.20-3.40); #Monocytes 0.8 thou/uL (0.11-0.59); #Neutrophils 15.4 thou/uL (1.40-6.50); %Eosinophils 0.1 % (0.0-10.0); %Monocytes 4.5 % (0.0-10.0); %Neutrophils 91.4 % (42.0-75.0); Hemoglobin 13.6 g/dL (14.0-18.0); Mean Corpuscular HGB CONC 34.1 g/dL (32.0-36.0); Mean Corpuscular Hemoglobin 32.8 pg (27.0-31.0); Mean Corpuscular Volume 96.2 fL (78.0-98.0); Mean Platelet Volume 7.4 fL (7.4-10.4); Platelet Count 271 thou/uL (130-400); RBC Distribution Width 11.6 % (11.5-14.5); Red Blood Cell (RBC) Count 4.15 mill/uL (4.70-6.10); White Blood Cell (WBC) Count 16.8 thou/uL (4.8-10.8)
[2021-07-17] MEDS: Mometasone 200 MCG/Formoterol 5 MCG 120 PUFF INHALER INH SCH ×2 (06:26→17:57)
[2021-07-17 06:41] LABS: Anion Gap 17 mmol/L (10-20); BUN (Urea Nitrogen) 42 mg/dL (8.4-25.7); Calc. Creatinine Clearance 70 mL/min (70-130); Carbon Dioxide 17 mmol/L (23-31); Chloride 104 mmol/L (98-107); Glucose 258 mg/dL (80-115); Sodium 133 mmol/L (136-145)
[2021-07-17] MEDS: Zinc Sulfate 220 MG CAP PO SCH (08:59)
[2021-07-17] MEDS: cloNIDine 0.1 MG TAB PO SCH ×2 (08:59→21:15)
[2021-07-17] MEDS: Colchicine 0.6 MG TAB PO SCH ×2 (09:00→21:17)
[2021-07-17] MEDS: Ascorbic Acid 500 mg Chewable Tablet PO SCH (09:00)
[2021-07-17] MEDS: Spironolactone 25 MG TAB PO SCH ×2 (09:00→21:21)
[2021-07-17] MEDS: Carvedilol 6.25 MG TAB PO SCH ×2 (09:01→21:19)
[2021-07-17] MEDS: guaiFENesin ER 600 MG TAB PO SCH ×2 (09:01→21:17)
[2021-07-17] MEDS: Cholecalciferol 1,000 UNITS (25 MCG) TAB PO SCH (09:01)
[2021-07-17] MEDS: Dexamethasone 4 mg/ml Vial SLOW IVP SCH ×2 (09:01→21:18)
[2021-07-17] MEDS: Enoxaparin Sodium 40 MG/0.4 ML SYRINGE SC SCH ×2 (09:02→21:17)
[2021-07-17] MEDS: NPH, Human Insulin Isophane 300 UNIT/3 ML VIAL SC SCH ×2 (09:02→21:20)
[2021-07-17] MEDS: Ivermectin 3 MG TAB PO SCH (09:02)
[2021-07-17] MEDS: HumaLOG 300 UNITS/3 ML VIAL SC PRN ×2 (12:38→17:56)
[2021-07-17] MEDS: Dronedarone HCl 400 MG TAB PO SCH (17:56)
[2021-07-17] MEDS: Amlodipine 5 MG TAB PO SCH (21:15)
[2021-07-17] MEDS: Aspirin 81 mg Enteric Coated Tablet PO SCH (21:17)
[2021-07-17] MEDS: Melatonin 3 MG TAB PO SCH (21:19)
[2021-07-17] MEDS ORDERED: Temazepam 15 MG CAP PO SCH (23:30)
[2021-07-18] MEDS: Albuterol 200 PUFF (6.7GM INHALER) INH SCH ×4 (00:12→18:20)
[2021-07-18] MEDS: Mometasone 200 MCG/Formoterol 5 MCG 120 PUFF INHALER INH SCH ×2 (06:36→17:53)
[2021-07-18] MEDS: HumaLOG 300 UNITS/3 ML VIAL SC PRN ×3 (06:37→17:54)
[2021-07-18 06:58] LABS: #Lymphocytes 0.6 thou/uL (1.20-3.40); #Neutrophils 10.4 thou/uL (1.40-6.50); %Basophils 0.1 % (0.0-1.0); %Lymphocytes 4.9 % (21.0-51.0); %Monocytes 7.9 % (0.0-10.0); Hemoglobin 13.3 g/dL (14.0-18.0); Mean Corpuscular HGB CONC 34.4 g/dL (32.0-36.0); Mean Corpuscular Hemoglobin 33.3 pg (27.0-31.0); Mean Corpuscular Volume 96.7 fL (78.0-98.0); Mean Platelet Volume 7.4 fL (7.4-10.4); Platelet Count 211 thou/uL (130-400); RBC Distribution Width 11.7 % (11.5-14.5)
[2021-07-18 07:18] LABS: Anion Gap 15 mmol/L (10-20); BUN (Urea Nitrogen) 39 mg/dL (8.4-25.7); Calc. Creatinine Clearance 74 mL/min (70-130); Calcium 7.7 mg/dL (7.8-10.44); Carbon Dioxide 19 mmol/L (23-31); Chloride 106 mmol/L (98-107); Glucose 253 mg/dL (80-115); Potassium 4.9 mmol/L (3.5-5.1); Sodium 135 mmol/L (136-145)
[2021-07-18] MEDS: Ivermectin 3 MG TAB PO SCH (08:31)
[2021-07-18] MEDS: Enoxaparin Sodium 40 MG/0.4 ML SYRINGE SC SCH ×2 (08:31→21:02)
[2021-07-18] MEDS: Saccharomyces boulardii 250 MG CAP PO SCH (08:32)
[2021-07-18] MEDS: Zinc Sulfate 220 MG CAP PO SCH (08:32)
[2021-07-18] MEDS: Cholecalciferol 1,000 UNITS (25 MCG) TAB PO SCH (08:32)
[2021-07-18] MEDS: Dexamethasone 4 mg/ml Vial SLOW IVP SCH ×2 (08:32→21:01)
[2021-07-18] MEDS: Spironolactone 25 MG TAB PO SCH ×2 (08:33→21:28)
[2021-07-18] MEDS: Ascorbic Acid 500 mg Chewable Tablet PO SCH (08:33)
[2021-07-18] MEDS: Carvedilol 6.25 MG TAB PO SCH ×2 (08:33→21:00)
[2021-07-18] MEDS: Colchicine 0.6 MG TAB PO SCH ×2 (08:33→21:00)
[2021-07-18] MEDS: cloNIDine 0.1 MG TAB PO SCH ×2 (08:34→21:29)
[2021-07-18] MEDS: NPH, Human Insulin Isophane 300 UNIT/3 ML VIAL SC SCH ×2 (08:34→21:22)
[2021-07-18] MEDS: guaiFENesin ER 600 MG TAB PO SCH ×2 (08:34→21:01)
[2021-07-18] MEDS: Thiamine 100 MG TAB PO SCH (08:35)
[2021-07-18 08:45] LABS: Magnesium 2.4 mg/dL (1.6-2.6)
[2021-07-18 08:47] LABS: Phosphorus 1.8 mg/dL (2.3-4.7)
[2021-07-18] MEDS ORDERED: Sodium Phosphate 30 MMOL in Sodium Chloride 0.9% 250 ML 250 ML IVPB SCH (14:00)
[2021-07-18] MEDS: Dronedarone HCl 400 MG TAB PO SCH (17:52)
[2021-07-18] MEDS: Melatonin 3 MG TAB PO SCH (20:21)
[2021-07-18] MEDS: Aspirin 81 mg Enteric Coated Tablet PO SCH (21:00)
[2021-07-18] MEDS: Amlodipine 5 MG TAB PO SCH (21:01)
[2021-07-19] MEDS: Albuterol 200 PUFF (6.7GM INHALER) INH SCH ×4 (00:45→17:49)
[2021-07-19] MEDS: Mometasone 200 MCG/Formoterol 5 MCG 120 PUFF INHALER INH SCH ×2 (05:49→17:48)
[2021-07-19] MEDS: HumaLOG 300 UNITS/3 ML VIAL SC PRN ×3 (06:12→16:52)
[2021-07-19] MEDS: Saccharomyces boulardii 250 MG CAP PO SCH (08:59)
[2021-07-19] MEDS: Cholecalciferol 1,000 UNITS (25 MCG) TAB PO SCH (09:00)
[2021-07-19] MEDS: Dexamethasone 4 mg/ml Vial SLOW IVP SCH ×2 (09:00→20:50)
[2021-07-19] MEDS: Spironolactone 25 MG TAB PO SCH ×2 (09:00→20:46)
[2021-07-19] MEDS: Ascorbic Acid 500 mg Chewable Tablet PO SCH (09:01)
[2021-07-19] MEDS: Carvedilol 6.25 MG TAB PO SCH ×2 (09:01→20:45)
[2021-07-19] MEDS: Thiamine 100 MG TAB PO SCH (09:01)
[2021-07-19] MEDS: Colchicine 0.6 MG TAB PO SCH ×2 (09:02→20:45)
[2021-07-19] MEDS: guaiFENesin ER 600 MG TAB PO SCH ×2 (09:02→20:47)
[2021-07-19] MEDS: cloNIDine 0.1 MG TAB PO SCH ×2 (09:02→20:48)
[2021-07-19] MEDS: Enoxaparin Sodium 40 MG/0.4 ML SYRINGE SC SCH ×2 (09:02→20:44)
[2021-07-19] MEDS: Zinc Sulfate 220 MG CAP PO SCH (09:02)
[2021-07-19] MEDS: Ivermectin 3 MG TAB PO SCH (09:02)
[2021-07-19] MEDS: NPH, Human Insulin Isophane 300 UNIT/3 ML VIAL SC SCH ×2 (09:02→20:49)
[2021-07-19] MEDS ORDERED: chlorproMAZINE HCl 50 MG/2 ML AMP SLOW IVP SCH (12:45)
[2021-07-19] MEDS ORDERED: chlorproMAZINE HCl 25 MG in Sodium Chloride 0.9% 50 ML IVPB SCH (13:15)
[2021-07-19] MEDS: Dronedarone HCl 400 MG TAB PO SCH (16:51)
[2021-07-19] MEDS: Aspirin 81 mg Enteric Coated Tablet PO SCH (20:48)
[2021-07-19] MEDS: Melatonin 3 MG TAB PO SCH (20:48)
[2021-07-19] MEDS: Amlodipine 5 MG TAB PO SCH (20:50)
[2021-07-20] MEDS: Albuterol 200 PUFF (6.7GM INHALER) INH SCH ×4 (01:30→17:51)
[2021-07-20] MEDS: Mometasone 200 MCG/Formoterol 5 MCG 120 PUFF INHALER INH SCH ×2 (05:52→17:51)
[2021-07-20] MEDS: HumaLOG 300 UNITS/3 ML VIAL SC PRN ×4 (05:52→20:38)
[2021-07-20] MEDS: Zinc Sulfate 220 MG CAP PO SCH (09:05)
[2021-07-20] MEDS: cloNIDine 0.1 MG TAB PO SCH ×3 (09:05→21:49)
[2021-07-20] MEDS: Cholecalciferol 1,000 UNITS (25 MCG) TAB PO SCH (09:05)
[2021-07-20] MEDS: Saccharomyces boulardii 250 MG CAP PO SCH (09:05)
[2021-07-20] MEDS: Carvedilol 6.25 MG TAB PO SCH ×3 (09:05→21:49)
[2021-07-20] MEDS: Spironolactone 25 MG TAB PO SCH (09:05)
[2021-07-20] MEDS: Colchicine 0.6 MG TAB PO SCH (09:06)
[2021-07-20] MEDS: Thiamine 100 MG TAB PO SCH (09:06)
[2021-07-20] MEDS: Dexamethasone 4 mg/ml Vial SLOW IVP SCH ×2 (09:06→20:38)
[2021-07-20] MEDS: NPH, Human Insulin Isophane 300 UNIT/3 ML VIAL SC SCH ×2 (09:06→20:37)
[2021-07-20] MEDS: guaiFENesin ER 600 MG TAB PO SCH ×2 (09:06→20:40)
[2021-07-20] MEDS: Ascorbic Acid 500 mg Chewable Tablet PO SCH (09:06)
[2021-07-20] MEDS: Enoxaparin Sodium 40 MG/0.4 ML SYRINGE SC SCH ×2 (09:07→20:39)
[2021-07-20] MEDS: Ivermectin 3 MG TAB PO SCH (10:01)
[2021-07-20] MEDS: Loperamide HCl 2 MG CAP PO PRN ×2 (14:21→20:56)
[2021-07-20] MEDS ORDERED: chlorproMAZINE HCl 50 MG/2 ML AMP SLOW IVP SCH (14:30)
[2021-07-20] MEDS ORDERED: chlorproMAZINE HCl 25 MG in Sodium Chloride 0.9% 50 ML IVPB SCH (14:45)
[2021-07-20 15:45] LABS: Anion Gap 13 mmol/L (10-20); BUN (Urea Nitrogen) 39 mg/dL (8.4-25.7); Calc. Creatinine Clearance 77 mL/min (70-130); Calcium 7.8 mg/dL (7.8-10.44); Carbon Dioxide 21 mmol/L (23-31); Chloride 106 mmol/L (98-107); Glucose 236 mg/dL (80-115); Potassium 4.8 mmol/L (3.5-5.1); Sodium 135 mmol/L (136-145)
[2021-07-20] MEDS: Dronedarone HCl 400 MG TAB PO SCH (16:59)
[2021-07-20] MEDS: Aspirin 81 mg Enteric Coated Tablet PO SCH (20:39)
[2021-07-20] MEDS: Melatonin 3 MG TAB PO SCH (20:40)
[2021-07-20] MEDS: Amlodipine 5 MG TAB PO SCH ×2 (20:40→21:49)
[2021-07-20] MEDS: Sodium Chloride 0.65% Nasal 44 ML BOT EA NARE SCH (20:40)
[2021-07-21] MEDS: Albuterol 200 PUFF (6.7GM INHALER) INH SCH ×3 (02:21→12:01)
[2021-07-21] MEDS: Loperamide HCl 2 MG CAP PO PRN (02:44)
[2021-07-21] MEDS ORDERED: Diphenoxylate HCl/Atropine Tablet PO PRN (03:15)
[2021-07-21 05:58] LABS: Anion Gap 13 mmol/L (10-20); BUN (Urea Nitrogen) 35 mg/dL (8.4-25.7); CRP (Inflammatory) 0.52 mg/dL (= or < 0.5); Calc. Creatinine Clearance 88 mL/min (70-130); Calcium 7.8 mg/dL (7.8-10.44); Carbon Dioxide 20 mmol/L (23-31); Chloride 106 mmol/L (98-107); Glucose 183 mg/dL (80-115); Potassium 4.9 mmol/L (3.5-5.1); Sodium 134 mmol/L (136-145)
[2021-07-21] MEDS: Mometasone 200 MCG/Formoterol 5 MCG 120 PUFF INHALER INH SCH ×2 (06:14→17:52)
[2021-07-21] MEDS: Zinc Sulfate 220 MG CAP PO SCH (08:37)
[2021-07-21] MEDS: cloNIDine 0.1 MG TAB PO SCH ×2 (08:37→09:03)
[2021-07-21] MEDS: Ascorbic Acid 500 mg Chewable Tablet PO SCH (08:37)
[2021-07-21] MEDS: Cholecalciferol 1,000 UNITS (25 MCG) TAB PO SCH (08:38)
[2021-07-21] MEDS: guaiFENesin ER 600 MG TAB PO SCH (08:38)
[2021-07-21] MEDS: Ivermectin 3 MG TAB PO SCH (08:38)
[2021-07-21] MEDS: Saccharomyces boulardii 250 MG CAP PO SCH (08:39)
[2021-07-21] MEDS: Carvedilol 6.25 MG TAB PO SCH (08:39)
[2021-07-21] MEDS: Thiamine 100 MG TAB PO SCH (08:39)
[2021-07-21] MEDS: Dexamethasone 4 mg/ml Vial SLOW IVP SCH (08:40)
[2021-07-21] MEDS: Sodium Chloride 0.65% Nasal 44 ML BOT EA NARE SCH ×2 (08:40→15:06)
[2021-07-21] MEDS: Enoxaparin Sodium 40 MG/0.4 ML SYRINGE SC SCH (08:41)
[2021-07-21] MEDS: NPH, Human Insulin Isophane 300 UNIT/3 ML VIAL SC SCH (08:41)
[2021-07-21] MEDS: HumaLOG 300 UNITS/3 ML VIAL SC PRN ×2 (11:55→16:43)
[2021-07-21] MEDS: Dronedarone HCl 400 MG TAB PO SCH (16:41)
[2021-07-21 18:19] VITALS: BP 105/68; TEMP 98.2
== END 2021-07-21 18:07 | disposition home or self-care (01) | DRG 177 ==
LOC: T4-A 05:43
PROVIDERS: ADMIT Student in an Organized Health Care Education/Training Program; ATTEND Internal Medicine
PROC: 8E0ZXY6 Isolation (ICD-10-PCS; principal; 2021-07-14)
DX: U07.1 COVID-19 (principal); N18.6 End stage renal disease; J12.82 Pneumonia due to coronavirus disease 2019; J96.01 Acute respiratory failure with hypoxia; I13.2 Hypertensive heart and chronic kidney disease with heart failure and with stage 5 chronic kidney disease, or end stage renal disease; A08.39 Other viral enteritis; I50.9 Heart failure, unspecified; E11.22 Type 2 diabetes mellitus with diabetic chronic kidney disease; G89.29 Other chronic pain; F17.210 Nicotine dependence, cigarettes, uncomplicated; J42 Unspecified chronic bronchitis; I49.9 Cardiac arrhythmia, unspecified; E78.5 Hyperlipidemia, unspecified; N40.0 Benign prostatic hyperplasia without lower urinary tract symptoms; M54.5 Low back pain; N18.30 Chronic kidney disease, stage 3 unspecified; D72.829 Elevated white blood cell count, unspecified; T38.0X5A Adverse effect of glucocorticoids and synthetic analogues, initial encounter; D64.9 Anemia, unspecified; Z88.8 Allergy status to other drugs, medicaments and biological substances; Z95.810 Presence of automatic (implantable) cardiac defibrillator; Z95.1 Presence of aortocoronary bypass graft; Z88.5 Allergy status to narcotic agent; Z79.82 Long term (current) use of aspirin; Z79.899 Other long term (current) drug therapy
CPT/HCPCS: 0240U; 36415; 36416; 71275; 80048; 82728; 83036; 83735; 84100; 85025; 85379; 86140; 87324; 87449; 94664; C9113; J1100; J1650; J1815; J3230; J3490; J7050; Q9967